=== PATIENT | female | born 1965 | race Caucasian/White ===

== ENCOUNTER 2022-06-13 14:29 | Outpatient (CLI) | payer BC, SELFPAY ==
--- OUTSIDE RECORDS SUMMARY | 2022-06-13 14:36 | XMS_ITS | Clinical Summary ---
:1965 Author Organization [facility] [place] [address] Care Team Providers Name Role Phone Pcp, No Primary Care Provider Unavailable Allergies No known active allergies Medications Medication Sig Dispensed Refills Start Date End Date Status Cholecalciferol, Take 1 tablet by 0 12/10/2015 Active Vitamin D3, (VITAMIN mouth once daily. D-3) 2,000 unit tablet lactobacillus Take 1 capsule by 0 07/18/2017 Active rhamnosus, GG, mouth 2 times (CULTURELLE) 10 billion daily. cell capsule buPROPion (WELLBUTRIN Take 1 tablet by 90 tablet 0 12/27/2017 Active SR) 150 mg mouth every Sustained-Release morning. tabletIndications: Depression, recurrent (HC) azithromycin Take 500 mg (2 6 tablet 0 03/14/2018 A ctive (ZITHROMAX) 250 mg tabs) by mouth on tabletIndications: day 1, then 250 Acute frontal mg (1 tab) daily sinusitis, recurrence for days 2-5. not specified Take with food escitalopram oxalate Take 0.5 tablets 45 tablet 1 04/30/2018 Active (LEXAPRO) 10 mg by mouth once tabletIndications: daily. 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 Tendinopathy of right biceps tendon 12/28/2020 Depression, recurrent 12/25/2017 Anxiety and depression 12/25/2017 Menorrhagia 09/08/2014 Scoliosis 04/01/2013 Immunizations Name Administration Dates Next Due Influenza, IIV3 (Age >=3 years) 09/15/2004 Influenza, IIV4 09/08/2014 Influenza, Intradermal Inactivated 09/09/2015 Tdap 03/12/2018, 05/22/2007 Family History Medical History Relation Name Comments Diabetes Brother type 2 Other Daughter ADD Asthma Father copd Diabetes Maternal Grandmother Asthma Mother Other Other bipolar, first c ousin and his child Heart Disease Paternal Aunt 55 bypass Heart Disease Paternal Grandfather 55 bypass Other Paternal Grandfather club foot Cancer Paternal Grandmother gulshan unknow n primary Cancer-colon Paternal Grandmother Cancer-breast No Family History Relation Name Status Comments Brother Daughter Father Maternal Grandmother Mother Other Paternal Aunt Paternal Grandfather Paternal Grandmother Social History Tobacco Use Types Packs/Day Years Used Date Never Smoker Smokeless Tobacco: Never Used Tobacco Cessation: Counseling Given: Yes Alcohol Use Standard Drinks/Week Comments Yes 0 (1 standard drink = 0.6 oz pure alcoho l) 1 drink 3-4 times per week Alcohol Habits Answer Date Recorded How often do you have a drink containing Not asked alcohol? How many drinks containing alcohol do you Not asked have on a typical day when you are drinking? How often do you have six or more drinks on Not asked one occasion? Comment: 1 drink 3-4 times per week 04/01/2013 Sex Assigned at Date Recorded Not on file Obstetrics History Para Term AB IAB SAB Ectopic Multiple Living Live Births 2 2 0 2 Date Outcome GA Total Labor/2nd/3rd Weight Sex Delivery Anes PTL Cary A 1 A5 Name Clin Labor Para Para Last Filed Vital Signs Vital Sign Reading Time Taken Comments Blood Pressure 114/77 03/12/2018 1:31 PM CDT tower Pulse 68 03/12/2018 1:31 PM CDT Temperature 36.4 ??C (97.6 ??F) 03/12/2018 1:31 PM CDT Respiratory Rate - - Oxygen Saturation 99% 03/12/2018 1:31 PM CDT Inhaled Oxygen Concentration - - Weight 68 kg (150 lb) 12/28/2020 1:39 PM CDT Height 162.6 cm (5' 4) 12/28/2020 1:39 PM CDT Body Mass Index 25.75 12/28/2020 1:39 PM CDT Plan of Treatment Health Maintenance Due Date Last Done Comments COVID-19 vaccine series (#1) 1965 Hepatitis C screening for age 0805/30/1984 18-79 Colonoscopy through age 75 2011 Zoster (shingles) series for age 0805/30/2016 50+ (1 of 2) Depression screening for age 12+ 12/04/2018 12/04/2017, , 11/30/2016, Additional history exists Mammogram for age 45-75 12/11/2018 12/11/2017, 09/14/2015, 09/08/2014, Additional history exists Lipids for age 45-75 09/08/2019 09/08/2014, 04/01/2013, 04/01/2013 BMI (ht and wt on same day) for 12/28/2021 12/28/2020, 03/01, age 18+ 07/18/2017, Additional history exists Influenza for age 50-64 06/01/2022 09/09/2015, 09/08/2014, 09/15/2004 Pap test for age 21-65 03/23/2023 03/23/2020, 03/23/2020, 07/13/2015, Additional history exists Tetanus booster 03/12/2028 03/12/2018, 05/22/2007 Tdap Completed 03/12/2018, 05/22/2007 Results Not on filefrom Last 3 Months Insurance Payer Benefit Plan / Subscriber ID Effective Dates Phone Addre ss Type Group [facility] [id number] [id number] [place] [address] ([place]) [facility] [place] [address] Care Teams Corporate Planning Manager Relationship Specialty Start Date End Date Pcp, No PCP - General 09/06/18 .
--- NOTE | 2022-06-13 14:40 | CRLHL7_ITS ---
For Patients: As a result of the Century Cures Act, medical imaging exams and procedure reports are released immediately into your electronic medical record. You may view this report before your referring provider. If you have questions, please contact your health care provider. BILATERAL SCREENING MAMMOGRAM WITH COMPUTER-AIDED DETECTION AND TOMOSYNTHESIS TECHNIQUE: CC and MLO views were obtained. These mammographic images have been obtained using full-field digital technique. These mammographic images were interpreted with the benefit of computer-aided detection. Breast Tomosynthesis was used in this interpretation. COMPARISON FILM: 03/17/20, 01/01/19, 12/11/17. FINDINGS: There are scattered areas of fibroglandular density IMPRESSION: There is no radiographic evidence for malignancy. ASSESSMENT: BI-RADS Category 1: Negative RECOMMENDATION: Routine screening mammogram in 1 year. A lay language report of this examination will be provided to the patient. Fernando Florence M.D. Diagnostic Radiologist [email or web address] MIKALA/Dictated by: Fernando Florence MD @ 06/14/2022 9:50:00 AM (Electronically Signed)
== END 2022-06-13 14:30 | disposition home or self-care (01) ==
LOC: MAMMO 14:30
PROVIDERS: PCP Internal Medicine; Visit Provider Internal Medicine
DX: Z12.31 Encounter for screening mammogram for malignant neoplasm of breast (principal)
CPT/HCPCS: 77063; 77067

== ENCOUNTER 2022-07-14 11:30 | Outpatient (RCR) | payer BC, SELFPAY | END 2022-07-14 14:56 | disposition home or self-care (01) | PROVIDERS: PCP Internal Medicine; Visit Provider Internal Medicine | DX: M25.649 Stiffness of unspecified hand, not elsewhere classified (principal) | CPT/HCPCS: 97033; 97035; 97110; 97140; 97165; 97535; X5282 ==

== ENCOUNTER 2022-08-02 07:12 | Day surgery (SDC) | payer BC, SELFPAY ==
--- NOTE | 2022-08-02 07:21 | SUR.PREOP ---
The eye drops brought by the patient (Ketorolac and Prednisolone) are examined and I have determined they are labeled by the patient's pharmacy for this patient as prescribed by the surgeon. The bottles are intact, recently obtained and appear to be correct.
[2022-08-02] MEDS: TETRACAINE 0.5% OPHTH 1 DROP EYE-LEFT ×2 (07:30→07:35)
[2022-08-02] MEDS: KETOROLAC OPHTH 0.5% 1 DROP EYE-LEFT ×3 (07:30→07:40)
[2022-08-02 07:37] VITALS: BMI 27.4
[2022-08-02 07:51] VITALS: BP 99/69; PULSE 64; RESP 16; TEMP 36.1; O2SAT 97
[2022-08-02] MEDS: ETHYL CHLORIDE 1 APPLICATION 1 APPLIC TOPICAL (07:54)
[2022-08-02] MEDS: SODIUM CHLORIDE 0.9 % (FLUSH) 10 ML SYRINGE IVF (07:54)
[2022-08-02] MEDS: TETRACAINE 0.5% OPHTH 2 DROP EYE-LEFT (08:38)
[2022-08-02] MEDS: BALANCED SALT IRRIG SOLN 15 ML EYE-LEFT (08:41)
--- NOTE | 2022-08-02 09:07 | W.ANESCHARGE ---
Anesthesia Charges Start Date/Time Anesthesia Start Date: 08/02/22 Anesthesia Start Time: 08:35 Stop Date/Time Anesthesia Stop Date: 08/02/22 Anesthesia Stop Time: 09:06 Summary Emergency: No
[2022-08-02 09:10] VITALS: BP 111/78; PULSE 57; RESP 16; TEMP 36.2; O2SAT 96
--- NOTE | 2022-08-02 09:40 | W.ANESCHARGE ---
Anesthesia Charges Start Date/Time Anesthesia Start Date: 08/02/22 Anesthesia Start Time: 08:35 Stop Date/Time Anesthesia Stop Date: 08/02/22 Anesthesia Stop Time: 09:06 Summary Emergency: No
--- NOTE | 2022-08-02 11:37 | W.PM.OPTPROC ---
Procedure Note Date of procedure: 08/02/22 Will [facility] bill your pro fee for this procedure?: Yes Procedure Description: SURGEON: Yas Nelson MD PREOPERATIVE DIAGNOSIS: Nuclear sclerotic cataract, left eye. POSTOPERATIVE DIAGNOSIS: Nuclear sclerotic cataract, left eye. NAME OF OPERATION: Phacoemulsification of cataract with posterior chamber intraocular lens implantation in the left eye. ANESTHESIA: Topical. ESTIMATED BLOOD LOSS: Less than 2 cc. COMPLICATIONS: None. PATHOLOGY SPECIMEN: None. INDICATIONS: See consult note for details. The risks, benefits and alternatives of the procedure were explained to the patient, who elected to proceed and signed informed consent to do so. PROCEDURE: The patient was brought to the pre-holding area where the left eye was identified as the operative eye. I placed my initials above this eye. The patient received eye drops consisting of 0.5% tetracaine, 1% tropicamide, 10% phenylephrine, and 0.5% ketorolac. The patient was then brought to the operating room where the left eye was again identified as the operative eye. The eye was prepped with Betadine and draped in the usual sterile ophthalmic fashion. A #15 super-sharp blade was used to create a paracentesis site. 1% non-preserved intracameral lidocaine was injected into the anterior chamber. Endocoat was injected into the anterior chamber. A 2.4 mm keratome was used to create a three-plane self-sealing incision 1 mm anterior to the temporal limbus. A cystotome was used to create an anterior capsular leaflet. The Utrata forceps were used to extend this to form a continuous curvilinear capsulorrhexis. Hydrodissection was performed. The cataract was removed with phacoemulsification using the plbwed-gyt-wzvocgw technique. The irrigation and aspiration tip was used to remove the remaining cortex. Healon was injected into the capsular bag. An RICHARD ZCB00 intraocular lens of 21.5 diopters was injected into the capsular bag. The irrigation and aspiration tip was used to remove the remaining viscoelastic. Balanced salt solution on a cannula was used to hydrate the wound, and the wound was found to be watertight. The pupil was noted to be round. DISPOSITION: The patient was taken to the recovery room and discharged to home in stable condition. The patient was instructed to call me or go to the emergency department with any sudden change, including dramatic loss of vision, severe pain in the eye or eyebrow region, nausea, or vomiting. The patient will follow up in the clinic tomorrow morning. Surgeon: Yas Nelson MD
== END 2022-08-02 09:38 | disposition home or self-care (01) ==
PROVIDERS: PCP Internal Medicine; Visit Provider Ophthalmology
PROC: (CPT 66984; principal; 2022-08-02 07:30)
DX: H25.12 Age-related nuclear cataract, left eye (principal)
CPT/HCPCS: 66984; 00142; A9270; J2250; J3010; V2632

== ENCOUNTER 2022-08-16 06:40 | Day surgery (SDC) | payer BC, SELFPAY ==
[2022-08-16 06:58] VITALS: BMI 27.4
[2022-08-16] MEDS: TETRACAINE 0.5% OPHTH 1 DROP EYE-RIGHT ×2 (06:58→07:05)
[2022-08-16] MEDS: KETOROLAC OPHTH 0.5% 1 DROP EYE-RIGHT ×3 (07:02→07:20)
[2022-08-16 07:11] VITALS: BP 120/76; PULSE 58; RESP 20; TEMP 36.8; O2SAT 98
[2022-08-16] MEDS: ETHYL CHLORIDE 1 APPLICATION 1 APPLIC TOPICAL (07:25)
[2022-08-16] MEDS: SODIUM CHLORIDE 0.9 % (FLUSH) 10 ML SYRINGE IVF (07:26)
[2022-08-16 07:32] LABS: SARS Antigen* negative (Negative)
[2022-08-16] MEDS: BALANCED SALT IRRIG SOLN 15 ML EYE-RIGHT (08:15)
[2022-08-16] MEDS: TETRACAINE 0.5% OPHTH 2 DROP EYE-RIGHT (08:15)
--- NOTE | 2022-08-16 08:36 | W.ANESCHARGE ---
Anesthesia Charges Start Date/Time Anesthesia Start Date: 08/16/22 Anesthesia Start Time: 08:05 Stop Date/Time Anesthesia Stop Date: 08/16/22 Anesthesia Stop Time: 08:37 Summary Emergency: No
[2022-08-16 08:37] VITALS: BP 116/74; PULSE 54; RESP 16; TEMP 36.4; O2SAT 98
--- NOTE | 2022-08-16 08:38 | P.OPTPRC_ITS ---
Procedure Note Date of procedure: 08/16/22 Will [facility] bill your pro fee for this procedure?: Yes Procedure Description: SURGEON: Yas Nelson MD PREOPERATIVE DIAGNOSIS: Nuclear sclerotic cataract, right eye. POSTOPERATIVE DIAGNOSIS: Nuclear sclerotic cataract, right eye. NAME OF OPERATION: Phacoemulsification of cataract with posterior chamber intraocular lens implantation in the right eye. ANESTHESIA: Topical. ESTIMATED BLOOD LOSS: Less than 2 cc. COMPLICATIONS: None. PATHOLOGY SPECIMEN: None. INDICATIONS: See consult note for details. The risks, benefits and alternatives of the procedure were explained to the patient, who elected to proceed and signed informed consent to do so. PROCEDURE: The patient was brought to the pre-holding area where the right eye was identified as the operative eye. I placed my initials above this eye. The patient received eye drops consisting of 0.5% tetracaine, 1% tropicamide, 10% phenylephrine, and 0.5% ketorolac. The patient was then brought to the operating room where the right eye was again identified as the operative eye. The eye was prepped with Betadine and draped in the usual sterile ophthalmic fashion. A #15 super-sharp blade was used to create a paracentesis site. 1% non-preserved intracameral lidocaine was injected into the anterior chamber. Endocoat was injected into the anterior chamber. A 2.4 mm keratome was used to create a three-plane self-sealing incision 1 mm anterior to the temporal limbus. A cystotome was used to create an anterior capsular leaflet. The Utrata forceps were used to extend this to form a continuous curvilinear capsulorrhexis. Hydrodissection was performed. The cataract was removed with phacoemulsification using the bjyuvi-fdx-wnrezcn technique. The irrigation and aspiration tip was used to remove the remaining cortex. Healon was injected into the capsular bag. An RICHARD ZCB00 intraocular lens of 21.5 diopters was injected into the capsular bag. The irrigation and aspiration tip was used to remove the remaining viscoelastic. Balanced salt solution on a cannula was used to hydrate the wound, and the wound was found to be watertight. The pupil was noted to be round. DISPOSITION: The patient was taken to the recovery room and discharged to home in stable condition. The patient was instructed to call me or go to the emergency department with any sudden change, including dramatic loss of vision, severe pain in the eye or eyebrow region, nausea, or vomiting. The patient will follow up in the clinic tomorrow morning. Surgeon: Yas Nelson MD
--- NOTE | 2022-08-16 08:48 | SUR.PHASEII ---
Dr. Nelson's Information for patients after cataract surgery packet reviewed with patient.
--- NOTE | 2022-08-16 08:54 | W.ANESCHARGE ---
Anesthesia Charges Start Date/Time Anesthesia Start Date: 08/16/22 Anesthesia Start Time: 08:05 Stop Date/Time Anesthesia Stop Date: 08/16/22 Anesthesia Stop Time: 08:37 Summary Emergency: No
== END 2022-08-16 09:05 | disposition home or self-care (01) ==
PROVIDERS: PCP Internal Medicine; Visit Provider Ophthalmology
PROC: (CPT 66984; principal; 2022-08-16 06:45)
DX: H25.11 Age-related nuclear cataract, right eye (principal)
CPT/HCPCS: 66984; 142; 87426; A9270; J2250; J3010; V2632

== ENCOUNTER 2022-08-31 09:22 | Emergency (ER) | payer BC, SELFPAY ==
--- NOTE | 2022-08-31 09:45 | CRLHL7_ITS ---
For Patients: As a result of the Cures Act, medical imaging exams and procedure reports are released immediately into your electronic medical record. You may view this report before your referring provider. If you have questions, please contact your health care provider. Indication: FALL last dylan, pain Technique: Right shoulder 3 views. Comparison: None Findings: Degenerative changes to the greater tuberosity. Mild spurring at the AC joint. No fracture or dislocation. Impression: No sign of acute injury. Dictated by Fernando Florence MD @ 08/31/2022 10:29:21 AM (Electronically Signed)
[2022-08-31 09:50] VITALS: BP 122/80; PULSE 66; RESP 16; TEMP 36.8; O2SAT 99; BMI 27.5
--- NOTE | 2022-08-31 10:58 | ED_ITS ---
HPI - Fall General Time Seen by Provider: 10:58 Date Seen: 08/31/22 Chief Complaint: Fall/Minor Trauma Stated Complaint: Fell last night, hurt R shoulder Time Seen by Provider: 08/31/22 10:28 Source: patient and RN notes reviewed Mode of arrival: ambulatory Limitations: no limitations History of Present Illness HPI Narrative: Patient is a 57-year-old female that is coming in with right shoulder pain. Slipped and fell on the ice last night. Went down on her knees and both elbows. Since then she has been having shoulder pain on the right side. She is worried as she is had 3 tears in her rotator cuff before per her report. She used to have [employer] insurance and had seen somebody in a different system, that physician is gone. She was managed non operatively, did do physical therapy. This was few years ago per her report. Her shoulder is now painful again. She does not want to use it. There is no numbness or tingling in this arm. She did not hit her head, no loss of consciousness, no neck or back pain. Nothing else hurts right now other than her shoulder, she points to anterior shoulder pain where this is bothering her. I am able to review with her that her x-ray as ordered in triage showing no acute fracture. There are no notable chronic changes on this x-ray either. Related Data Home Medications Medication Instructions Recorded Confirmed cholecalciferol (vitamin D3) 50 2,000 unit PO DAILY 04/17/22 08/31/22 mcg (2,000 unit) capsule fluocinonide 0.05 % topical 1 applic topical BID 08/01/22 08/31/22 ointment vit A-abqklxsl-twm-elderberry 1 tab PO DAILY 08/02/22 08/31/22 polyethylene glycol 3350 17 17 g PO DAILY 08/31/22 08/31/22 gram/dose oral powder (ClearLax) Previous Rx's Medication Instructions Recorded bupropion HCl 150 mg tablet,12 hr 150 mg PO BID #180 tabs 04/17/22 sustained-release escitalopram oxalate 10 mg tablet 10 mg PO QDAY #90 tabs 04/17/22 (Lexapro) Allergies Allergy/AdvReac Type Severity Reaction Status Date / Time No Known Drug Allergies Allergy Verified 08/31/22 09:53 Review of Systems Narrative: As per HPI PFSH PFSH Medical History (Updated 08/31/22 @ 11:19 by Liza Luciano MD) History of nephrolithiasis History of scoliosis Surgical History (Updated 08/17/22 @ 17:37 by Sandra Ingram MD) History of carpal tunnel surgery Social History Smoking Status: Never smoker How often do you have a drink containing alcohol: 2-3 times a week How many standard drinks containing alcohol do you have on a typical day: 1 or 2 How often do you have six or more drinks on one occasion: Never AUDIT-C Alcohol total score: 3 Non-prescribed substance use: denies use Caffeine: Yes Little interest or pleasure in doing things: several days Feeling down, depressed, or hopeless: several days Are you using contraception or practicing any form of control: No Exam Const: Vital Signs, click to edit/add: Vital Signs - 24 hr 08/31/22 09:50 Temperature 98.3 F Pulse Rate [Pulse Oximeter] 66 Respiratory Rate 16 Blood Pressure [Le ft Upper Arm] 122/80 Pulse Oximetry 99 Oxygen Delivery Me thod Room Air Patient is a 57-year-old female sitting on the edge of the ER bed, alert interactive no apparent distress. She has good radial pulses that are symmetric bilaterally. Normal sensation of her hands and her upper extremities that is symmetric and normal. She has good hand principal developer strength. No pain about her wrists or elbows. If her upper arm is isolated along her body she can flex and extend at the elbow without any difficulty. She has pain with forward flexion at the shoulder. She actually can abduct to 90? pretty easily but above 90? there is maybe some mild pain. It seems to be forward flexion that bothers her the most. I do not palpate any pain along the biceps muscle body. She does seem to have some biceps tendon tenderness within the bicipital groove. She certainly seems to have signs of impingement on examination of her rotator cuff. Documenting provider has reviewed patient's vital signs: yes Course Course Hospital Course: But patient did verbalize wanting MRI of her shoulder to nursing staff. I reviewed with her that that really is not indicated out of the ER. I certainly can get her a referral to physical therapy to start working on her shoulder again. I would recommend followup with Orthopedics given her reported history. She would like to just be seen in our system. Vital Signs Vital signs: Initial Vital Signs Temperature 98.3 F 08/31/22 09:50 Temperature Source Temporal Artery Scan 08/31/22 09:50 Pulse Rate 66 08/31/22 09:50 Respiratory Rate 16 08/31/22 09:50 Blood Pressure 122/80 08/31/22 09:50 Blood Pressure Mean 94 08/31/22 09:50 Blood Pressure Position Sitting 08/31/22 09:50 Pulse Oximetry 99 08/31/22 09:50 Oxygen Delivery Method 08/31/22 09:50 Vital Signs Temperature 98.3 F 08/31/22 09:50 Pulse Rate 66 08/31/22 09:50 Respiratory Rate 16 08/31/22 09:50 Blood Pressure 122/80 08/31/22 09:50 Pulse Oximetry 99 08/31/22 09:50 Oxygen Delivery Method 08/31/22 09:50 Temperature 98.3 F 08/31/22 09:50 Pulse Rate 66 08/31/22 09:50 Respiratory Rate 16 08/31/22 09:50 Blood Pressure 122/80 08/31/22 09:50 Pulse Oximetry 99 08/31/22 09:50 Oxygen Delivery Method 08/31/22 09:50 MDM - Fall Imaging Data X-ray right shoulder: Attestation: I have reviewed the pertinent imaging results. My impression: On my preliminary review, see no evidence of any acute fracture. Radiologist's impression: Patient: GERMAINE JIM Facility:?[facility] Patient ID:?[id number] Site Patient ID:?[id number]. Site :?1965 Study:?XRay Shoulder Right -08/31/2022 10:26:40 AM Ordering Physician:Telma De Jesus Final Report: Indication: FALL last dylan, pain Technique: Right shoulder 3 views. Comparison: None Findings: Degenerative changes to the greater tuberosity. Mild spurring at the AC joint. No fracture or dislocation. Impression: No sign of acute injury. Dictated by Fernando Florence MD @ 08/31/2022 10:29:21 AM (Electronic Signature) Critical Care Time Critical Care Time Critical Care Time: No Discharge Plan Discharge Clinical Impression: Acute pain of right shoulder, History of rotator cuff tear, Fall Patient Disposition: Home, Self-Care Condition: Stable Instructions: Shoulder Pain (ED) Additional Instructions: Physical therapy referral form provided, can use this and do recommend doing so. Use sling as needed for comfort but do pendulum exercises at least a few times a day to minimize the risk of frozen shoulder syndrome. Tylenol and ibuprofen per bottle directions as needed for discomfort. Contact Orthopedic office at [phone] to get scheduled for a follow-up. Activity Level: Activity as Tolerated Prescriptions: No Action fluocinonide 0.05 % ointment 1 applic topical BID cholecalciferol (vitamin D3) 50 mcg (2,000 unit) capsule 2,000 unit PO DAILY bupropion HCl 150 mg tablet sustained-release 12 hr 150 mg PO BID Qty: 180 3RF escitalopram oxalate [Lexapro] 10 mg tablet 10 mg PO QDAY Qty: 90 3RF vit E-qjceszpk-utc-elderberry [Emergen-C Elderberry] 1 tab PO DAILY polyethylene glycol 3350 [ClearLax] 17 gram/dose powder 17 g PO DAILY Follow Up/Referrals: Sandra Ingram MD [Primary Care Provider] - Stand Alone Forms: MyHealth Info Instructions
--- OUTSIDE RECORDS SUMMARY | 2022-08-31 11:32 | XMS_ITS | Clinical Summary ---
:1965 Author Organization [facility] [place] [address] Care Team Providers Name Role Phone Pcp, [...] Done Comments COVID-19 vaccine series (#1) 1965 HIV for age 15-65 1981 Hepatitis C screening for age 0805/30/1984 18-79 [...] Effective Dates Phone Addre ss Type Group [facility] [id number] [id number] [place] [address] (Home) [facility] [place] [phone] Care Teams Manager Program Relationship Specialty Start Date End Date Pcp, No PCP - General 09/06/18 .
== END 2022-08-31 11:36 | disposition home or self-care (01) ==
PROVIDERS: Emergency Provider Family Medicine; PCP Internal Medicine
DX: M25.511 Pain in right shoulder (principal)
CPT/HCPCS: 73030; 99283

== ENCOUNTER 2022-09-11 12:59 | Outpatient (CLI) | payer BC, SELFPAY ==
--- NOTE | 2022-09-11 13:00 | MR_ITS ---
[address] [address] Phone:?[phone] Fax:?[phone] Referring Physician Information: Aaron Chiu [address] [facility] [address] Phone:?[phone] Fax:?[phone] Patient:?Zoya Dumas D.O.B:?1965 Sex:?Female Phone:?[phone] [facility] MRN:?[id number] Exam Date:?09/11/2022 ? EXAM: MRI of the RIGHT SHOULDER, without contrast CLINICAL: Right shoulder pain. Evaluate for rotator cuff tear. COMPARISONS: MRI dated 11/17/2020. X-rays 09/02/2019. TECHNICAL: MRI sequences of the right shoulder: Axials: PD, PDFS Coronals: PD, T2FS Sagittals: PDFS, T2 SEDATION: None. CONTRAST: None. FINDINGS: Rotator cuff: Supraspinatus/Infraspinatus: There is high-grade partial/near full-thickness tearing of the distal supraspinatus tendon similar to prior exam, with partial tearing seen to extend into the infraspinatus tendon similar to prior exam. No evidence of interval increased tendon retraction. Mild fatty infiltration/atrophy of the infraspinatus muscle similar to prior exam. Teres minor: No tendinosis, tear or atrophy. Subscapularis: Tendinosis and partial interstitial tearing appears similar to prior examination. No significant fatty atrophy of the muscle belly. Bursae: Subacromial-subdeltoid: Mild bursitis. Subcoracoid: No convincing subcoracoid bursal thickening/bursitis. Coracoacromial arch: Acromion morphology: Type II. No os acromiale. Acromiohumeral space: Within normal limits. Coracohumeral space: Within normal limits. Biceps tendon, long head: Dislocated medially from the bicipital groove extending into distal subscapularis tendon fibers, similar to prior exam. No evidence of tendon rupture. Mild tendinosis of the intra-articular tendon. Glenohumeral joint: Physiologic volume of joint fluid. Articular cartilage: No significant chondral loss. Capsule: No convincing evidence of capsular thickening or injury. Labrum: Attenuation and tearing is seen to involve the superior extending into the posterior labrum similar to prior exam. No perilabral cyst identified. Bones: Mild subchondral reactive marrow edema involving the superior glenoid similar to prior exam. No osseous fracture. Acromioclavicular joint: Changes of arthrosis appear similar to prior examination. No new AC joint injury/widening. IMPRESSION: 1. High-grade partial/near full-thickness tearing of the distal supraspinatus tendon with partial tearing extending into the distal infraspinatus tendon similar to prior examination. 2. Tendinosis and partial interstitial tearing of the distal subscapularis tendon similar to prior exam. 3. Mild subacromial-subdeltoid bursitis. 4. Medial dislocation of the long head biceps tendon from the bicipital groove extending into distal subscapularis tendon fibers similar to prior exam. Mild tendinosis of the intra-articular long head biceps tendon. 5. Attenuation and tearing involving the superior extending into the posterior labrum similar to prior exam. 6. AC joint arthrosis similar to prior exam. JCZ Electronically signed on 09/11/2022 2:53:00 PM by Dawson Aleman D.O.
--- OUTSIDE RECORDS SUMMARY | 2022-09-11 13:29 | XMS_ITS | Clinical Summary ---
:1965 Author Organization [facility] [place] [address] Care Team Providers Name Role Phone Pcp, [...] Tobacco Use Types Packs/Day Years Used Date Smoking Tobacco: Never Smokeless Tobacco: Never Tobacco Cessation: Counseling Given: Yes Alcohol Use Standard Drinks/Week Comments Yes 0 (1 standard drink = 0.6 oz pure alcoho l) 1 drink 3-4 times per week Sex Assigned at Date Recorded Not on [...] Effective Dates Phone Addre ss Type Group [facility] [id number] [address] [address] [place] [address] (Roland) [address] [address] 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
== END 2022-09-11 13:00 | disposition home or self-care (01) ==
LOC: MRI 12:59
PROVIDERS: PCP Internal Medicine; Visit Provider Physician Assistant
DX: M25.511 Pain in right shoulder (principal); M75.101 Unspecified rotator cuff tear or rupture of right shoulder, not specified as traumatic; S46.911A Strain of unspecified muscle, fascia and tendon at shoulder and upper arm level, right arm, initial encounter; M75.51 Bursitis of right shoulder; Z87.39 Personal history of other diseases of the musculoskeletal system and connective tissue
CPT/HCPCS: 73221

== ENCOUNTER 2022-09-28 07:04 | Day surgery (SDC) | payer BC, SELFPAY ==
[2022-09-28] VITALS (18 sets, daily range): BP systolic 80–134; BP diastolic 54–93; PULSE 59–82; RESP 16–20; TEMP 36.4–36.5; O2SAT 91–100; BMI 27.8
[2022-09-28] MEDS: CEFAZOLIN 2 GM INJ IVP (06:56)
[2022-09-28] MEDS: LACTATED RINGERS 1000 ML 1,000 ML 100 ML IV ×2 (07:40→10:03)
[2022-09-28] MEDS: ACETAMINOPHEN 500 MG TABLET 1000 MG PO (07:45)
[2022-09-28] MEDS: OXYCODONE (CR) 10 MG TAB.ER.12H PO (07:45)
[2022-09-28] MEDS: CELECOXIB 200 MG CAPSULE PO (07:45)
--- NOTE | 2022-09-28 07:56 | SUR.PREOP ---
TIME?OUT:?0755, right shoulder PT/RN/MDA?VERIFICATION?OF?SURGICAL?SITE,?PROCEDURE,?AND?CONSENT OBTAINED?PRIOR?TO?INVASIVE?PROCEDURE.
[2022-09-28] MEDS: fentaNYL 100 MCG/2 ML inj IVP (08:00)
[2022-09-28] MEDS: MIDAZOLAM HCL 1 MG/ML inj IVP (08:00)
--- NOTE | 2022-09-28 08:13 | SUR.PREOP ---
home covid result, negative
--- NOTE | 2022-09-28 09:47 | P.NB_ITS ---
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 Images saved: Yes Medications given in 5ml increments after negative aspiration: Ropivicaine %: 0.5 mL: 20 Needle gauge: 22 Decadron (mg): 10 Precedex (mcg): 25 Patient tolerated procedure well: Yes Block Charges Block Charge (with Pro Fee): Brachial Plexus Use of Ultrasound Machine for Block: Yes- US Guidance/pain block
--- NOTE | 2022-09-28 11:04 | PM.ORPRC ---
Procedure Note Date of procedure: 09/28/22 Procedure: PREOPERATIVE DIAGNOSIS: Right shoulder rotator cuff tear, AC joint arthrosis POSTOPERATIVE DIAGNOSIS: Right shoulder rotator cuff tear, AC joint arthrosis NAME OF OPERATION: Right shoulder arthroscopic subacromial decompression, distal clavicle excision, mini open rotator cuff repair SURGEON: Lele Nelson MD CAREER TECHNICAL SUPERVISOR: Latasha Quintero PA-C ANESTHESIA: Supraclavicular block plus general endotracheal ESTIMATED BLOOD LOSS: 5 mL COMPLICATIONS: None SPECIMENS: None DRAINS: None PREOPERATIVE ANTIBIOTICS: Ancef 2 grams INDICATIONS: The patient is a 57-year-old with a history of right shoulder pain secondary to the above diagnoses. Despite appropriate non operative management, they continue to have symptoms. Operative intervention was recommended. The risks, benefits and expected outcomes were discussed in detail. These included but were not limited to: Infection, bleeding, injury to blood vessel or nerve, venous thromboembolism. All questions were answered to their satisfaction. PROCEDURE: A supraclavicular block was placed by Anesthesia. General anesthesia was administered. The patient was placed in the high beach chair position. The right shoulder was prepped and draped in the usual sterile fashion. The glenohumeral joint was infiltrated with 20 mL of normal saline with epinephrine. The posterior portal was established, the arthroscope was introduced. The anterior portal was established, Diagnostic arthroscopy was performed with findings as follows: The biceps has no significant intra-articular tendinopathy, but is subluxed medially into the subscap tear. The anterior, posterior and superior labrum are normal. Articular surfaces on the humeral head and glenoid are normal. There are no loose bodies. There is a full-thickness tear of the supraspinatus, infraspinatus and upper subscap. The arthroscope was placed in the subacromial space, the lateral portal was established. The Arthrex [place] was used to dissect the acromion free. The CA ligament was recessed off the anterior acromion, the AC joint was exposed. The acromioplasty was performed with the bur in the posterior portal. The bur was then placed in the lateral portal and the lateral and anterior aspect of the acromion were resected. The undersurface of the distal clavicle was resected through the lateral portal. Finally, the bur was placed in the anterior portal and the remainder of the distal clavicle was resected for a total of 10 mm. An accessory anterolateral portal was placed. The subacromial/subdeltoid bursa was aggressively debrided. There is a full-thickness tear of the supraspinatus, into the infraspinatus. Arthroscopic instruments were removed. The accessory anterolateral portal was extended proximally and distally, subcutaneous dissection was taken with electrocautery to the deltoid. The deltoid was divided in line with its fibers. The static retractor was placed. The subacromial/subdeltoid bursa was debrided with the Albert scissors. The small, full-thickness tear of the supraspinatus was extended with the 15 blade both anteriorly and posteriorly. This results in near full-thickness detachment of the infraspinatus and full-thickness detachment of the subscap. The greater and lesser tuberosities were debrided to punctate bleeding bone using the Lempert rongeur. An Arthrex BioComposite SwiveLock anchor was placed in most upper, lateral aspect of the lesser tuberosity, just medial to the bicipital groove. All 4 limbs of the suture were passed through the subscap using the scorpion. Two Arthrex BioComposite SwiveLock anchors were placed just off the articular surface. Both limbs of the FiberWire and fiber tape were passed using the scorpion. A fiber link was placed in the leading edge of the rotator cuff x2. We tied the 2 central FiberWire sutures over the rotator cuff. We then proceeded with a lateral row of SwiveLock anchors x 2 crossing the FiberTape and incorporating the FiberWire and fiber link into each lateral row anchor. The sutures on the eyelet in the lateral row anchors were passed through the leading edge of the supra and infraspinatus and tied. Finally, the sutures in the subscap were tied over the anterior aspect of the subscap, completing the rotator cuff repair. This provides an anatomic, watertight repair of the rotator cuff. There is no tension on the repair with the shoulder at 0? abduction. The wound was irrigated with normal saline off the pump. The deltoid was repaired with an 0 Vicryl in an interrupted [id number]-[id number]-[id number] fashion. Subcutaneous tissues were closed with a 3-0 Vicryl. Skin was closed with a 3-0 Monocryl in a subcuticular fashion. A dry dressing, polar care and sling were applied. Sponge and needle counts were correct x2. The patient tolerated the procedure well. There were no apparent complications. They were carefully transferred to the hospital bed and taken to the postanesthesia care unit in satisfactory condition. PLAN: The patient will be discharged to home. No active range of motion of the shoulder will be allowed for 6 weeks postoperatively. They can work on active range of motion of the elbow, wrist and fingers. They will follow up in the office next week for a wound check and an AP and transscapular Y-view of the shoulder prior to being seen.
--- NOTE | 2022-09-28 11:27 | W.ANESCHARGE ---
Anesthesia Charges Start Date/Time Anesthesia Start Date: 09/28/22 Anesthesia Start Time: 09:19 Stop Date/Time Anesthesia Stop Date: 09/28/22 Anesthesia Stop Time: 11:38 Summary Emergency: No
--- NOTE | 2022-09-28 11:38 | W.ANESCHARGE ---
Anesthesia Charges Start Date/Time Anesthesia Start Date: 09/28/22 Anesthesia Start Time: 09:19 Stop Date/Time Anesthesia Stop Date: 09/28/22 Anesthesia Stop Time: 11:38 Summary Emergency: No
== END 2022-09-28 14:00 | disposition home or self-care (01) ==
PROVIDERS: PCP Internal Medicine; Visit Provider Orthopaedic Surgery
PROC: (CPT 23412; principal; 2022-09-28 08:00)
DX: M19.011 Primary osteoarthritis, right shoulder (principal); M75.101 Unspecified rotator cuff tear or rupture of right shoulder, not specified as traumatic; M25.511 Pain in right shoulder
CPT/HCPCS: 29826; 29824; 23412; 01630; 64415; 76942; A9270; C1713; J0690; J1100; J2250; J2405; J2704; J2710; J2795; J3010; J7120; L3670

== ENCOUNTER 2023-04-05 09:15 | Outpatient (RCR) | payer BC, SELFPAY ==
--- NOTE | 2022-12-19 16:53 | PT.OPDNX ---
PT [facility] Daily Note PT [facility] Daily Note Start: 10/10/22 11:09 Freq: Status: Active Protocol: Document 12/19/22 13:32 [facility] (Rec: 12/19/22 13:55 [facility] [id number]) E-signed By Mohsen Patel, PT PT OP Daily Progress Note Visit Information Note Type Daily Note,Recert/Progress Note Visit Number [id number] Insurance Authorized Visits up to 20 on POC Insurance Information Insurance Name [employer] Insurance Information/Comments RTD 12/20/22 Medical Diagnosis DOS: 09/28/22 s/p Right RTC repair SAD, DCE RTD 12/20/22 Treating Diagnosis Right shoulder pain Shoulder stiffness Muscle weakness Referring MD Franny Zimmer PA-C/ Dr. Lele Nelson Subjective Subjective Pt continues to have fairly constant low level aching Pain Comments Average (fairly constant) 4/10 At worst: 6-7/10 Preferred Name Zoya Precautions Treatment Precautions/Contraindications No restrictions, Gradual progression of RTC strengthening and stabilization, as tolerated Home Exercise Home Exercise Comments Access Code: [email or web address] URL: [email or web address] Date: 11/21/2022 Prepared by: Mohsen Patel Exercises Supine Bridge - 1 x daily - 7 x weekly - 2 sets - 10 reps Supine March - 1 x daily - 7 x weekly - 2 sets - 10 reps Supine Active Straight Leg Raise - 1 x daily - 7 x weekly - 2 sets - 10 reps Flexion-Extension Shoulder Pendulum with Table Support - 3 x daily - 7 x weekly - 1 sets - 10 reps Seated Scapular Retraction - 1 x daily - 7 x weekly - 1 sets - 5 reps - 5 seconds hold Standing Shoulder and Trunk Flexion at Table - 1 x daily - 7 x weekly - 1-2 sets - 10-20 reps - 5 sec hold Supine Shoulder External Rotation in 45 Degrees Abduction AAROM with Dowel - 1 x daily - 7 x weekly - 2 sets - 10 reps - 5 sec hold Supine Shoulder Flexion Extension AAROM with Dowel - 1 x daily - 7 x weekly - 2 sets - 5-10 reps Standing Shoulder Abduction AAROM with Dowel - 1 x daily - 7 x weekly - 2 sets - 5-10 reps Sidelying Shoulder External Rotation - 1 x daily - 7 x weekly - 2 sets - 5-10 reps Supine Shoulder Internal Rotation Stretch - 1 x daily - 7 x weekly - 2 sets - 5-10 reps Single Arm Bent Over Shoulder Extension with Dumbbell - 1 x daily - 7 x weekly - 1 sets - 10-15 reps Single Arm Bent Over Shoulder Horizontal Abduction with Dumbbell - Palm Down - 1 x daily - 7 x weekly - 1 sets - 10-15 reps Objective Other/Pertinent Objective Unable to reach out to side with weight Performed 10x unweighted w/ increasing discomfort. 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 Includes right shoulder stretches, RTC strength and scap stabilization. HEP also includes core strengthening ex to support UE /distal limb movements. Access Code: [email or web address] URL: [email or web address] Date: 12/19/2022 Prepared by: Mohsen Patel Exercises Supine Bridge - 1 x daily - 7 x weekly - 2 sets - 10 reps Supine March - 1 x daily - 7 x weekly - 2 sets - 10 reps Supine Active Straight Leg Raise - 1 x daily - 7 x weekly - 2 sets - 10 reps Seated Scapular Retraction - 1 x daily - 7 x weekly - 1 sets - 5 reps - 5 seconds hold Supine Shoulder Flexion Extension AAROM with Dowel - 1 x daily - 7 x weekly - 2 sets - 5-10 reps Single Arm Bent Over Shoulder Extension with Dumbbell - 1 x daily - 7 x weekly - 1 sets - 10-15 reps Single Arm Bent Over Shoulder Horizontal Abduction with Dumbbell - Palm Down - 1 x daily - 7 x weekly - 1 sets - 10-15 reps Standing Shoulder Internal Rotation Stretch with Towel - 1 x daily - 7 x weekly - 1 sets - 2 reps - 30 seconds hold Seated Shoulder Abduction Towel Slide at Table Top - 1 x daily - 4 x weekly - 1 sets - 10-15 reps Standing Shoulder Flexion Wall Walk - 1 x daily - 4 x weekly - 1 sets - 5 reps - 5 seconds hold Shoulder External Rotation and Scapular Retraction with Resistance - 1 x daily - 4 x weekly - 2 sets - 10-15 reps Seated Shoulder Internal Rotation with Anchored Resistance - 1 x daily - 4 x weekly - 2 sets - 10-15 reps Standing Bilateral Low Shoulder Row with Anchored Resistance - 1 x daily - 4 x weekly - 1 sets - 20-30 reps Therapeutic Activity Therapeutic Activity Minutes (minutes) 10 Therapeutic Activities Comments 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 Patient attempted simulated movements she will need to do on the job such as reach out to the side, weighted bicep lift and overhead reach. All are still limited at this time . Treatment Minutes Timed Code Treatment Minutes 45 Total Treatment Time 45 Billing Units Therapeutic Activity Units 1 Therapeutic Exercise Units 2 Assessment/Impression Assessment/Impression Zoya is still having fairly constant low level aching at the front of her right shoulder (biceps path) 2 1.2 months s/p R RCR, DCE and SAD. She is making slow but fairly steady progress with ROM and strength. 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 I recommend continued skilled PT for progression of RCR protocol in order to return to work. Plan of Care Physical Therapy Goals In 4 weeks, patient will: 1) Restore full PROM right shoulder for progression to next phase of rehab 2) Be sleeping comfortably in bed, consistently In 8-10 weeks, patient will: 3) Reach into overhead cabinet with right hand to retrieve 2lb object, painfree 4) Resume driving, painfree 5) Don/doff shirt/jacket painfree 6) Lift & carry up to 15 lb object with both hands, pain max 10/10 Daily Plan of Care Change POC; See Comments Daily Plan of Care Comments Extend length of PT course of care for 2 months ([place] will be [place] of country for [place])
== END 2023-04-12 16:44 | disposition home or self-care (01) ==
PROVIDERS: PCP Internal Medicine; Visit Provider Orthopaedic Surgery
DX: Z98.890 Other specified postprocedural states (principal); Z51.89 Encounter for other specified aftercare
CPT/HCPCS: 97110; 97112; 97140; 97161; 97530; 97535

== ENCOUNTER 2023-07-27 14:23 | Outpatient (CLI) | payer BC, SELFPAY ==
--- NOTE | 2023-07-27 14:40 | CRLHL7_ITS ---
For Patients: As a result of the Century Cures Act, medical imaging exams and procedure reports are released immediately into your electronic medical record. You may view this report before your referring provider. If you have questions, please contact your health care provider. BILATERAL SCREENING MAMMOGRAM WITH COMPUTER-AIDED DETECTION AND TOMOSYNTHESIS TECHNIQUE: CC and MLO views were obtained. These mammographic images have been obtained using full-field digital technique. These mammographic images were interpreted with the benefit of computer-aided detection. Breast tomosynthesis was used in this interpretation. COMPARISON FILM: 06/13/22, 03/17/20, 06/03/19. FINDINGS: There are scattered areas of fibroglandular density. IMPRESSION: There is no radiographic evidence for malignancy. ASSESSMENT: BI-RADS Category 2: Benign RECOMMENDATION: Routine screening mammogram in 1 year. A lay language report of this examination will be provided to the patient. FERNANDO SUAREZ M.D. Diagnostic Radiologist [email or web address] PARKER/michele Transcribed: 07/30/2023, 3:[address]/Dictated by: Fernando Suarez MD @ 07/30/2023 9:08:00 AM (Electronically Signed)
== END 2023-07-27 14:24 | disposition home or self-care (01) ==
LOC: MAMMO 14:24
PROVIDERS: PCP Internal Medicine; Visit Provider Internal Medicine
DX: Z12.31 Encounter for screening mammogram for malignant neoplasm of breast (principal)
CPT/HCPCS: 77063; 77067

== ENCOUNTER 2023-08-29 11:39 | Outpatient (CLI) | payer BC, SELFPAY ==
[2023-08-29] MEDS: TETRACAINE 0.5% OPHTH 1 DROP EYE-RIGHT ×3 (11:47→12:40)
[2023-08-29] MEDS: BRIMONIDINE TARTRATE 0.2% OPHTH 1 DROP EYE-RIGHT ×2 (11:49→12:50)
[2023-08-29 11:56] VITALS: BP 118/76; PULSE 79; RESP 16; O2SAT 98
--- NOTE | 2023-08-29 13:20 | P.OPTPRC_ITS ---
Procedure Note Date of procedure: 08/29/23 Will [facility] bill your pro fee for this procedure?: Yes Procedure Description: SURGEON: Yas Nelson MD PREOPERATIVE DIAGNOSIS: Posterior capsular opacity, right eye POSTOPERATIVE DIAGNOSIS: Posterior capsular opacity, right eye PROCEDURE: YAG laser capsulotomy, right eye ANESTHESIA: Topical. ESTIMATED BLOOD LOSS: None PATHOLOGY SPECIMEN: None COMPLICATIONS: None INDICATIONS: See consult note for details. The risks, benefits and alternatives of the procedure were explained to the patient, who elected to proceed and signed informed consent to do so. PROCEDURE: The patient was brought to the pre-holding area where the right eye was identified as the operative eye. I placed my initials above this eye. The patient received 2 sets of 1 drop of 0.5% tetracaine and 1 drop of 1% tropicamide. They also received 1 drop of 0.2% brimonidine. They received 1 drop of 0.5% tetracaine immediately prior to bringing them back for the procedure. The patient was then brought to the procedure room where the right eye was again identified as the operative eye. A YAG Usman capsulotomy lens was placed on the eye. The laser was administered using a total number of 30 shots with an energy of 2.4 mJ per shot for a total energy of 72 mJ. The patient tolerated the procedure well. DISPOSITION: The patient was taken back to the pre-holding area and given 1 drop of 0.2% brimonidine in the right eye. They were discharged to home in stable condition. The patient was instructed to call me or go to the emergency department with any sudden change, including dramatic loss of vision, severe pain in the eye or eyebrow region, nausea, or vomiting. The patient was instructed to use the 0.2% brimonidine 1 drop 2 times a day in the right eye for 1 week. The patient will follow up in the clinic in 1-2 weeks.
== END 2023-08-29 12:52 | disposition home or self-care (01) ==
LOC: EYE PRC 11:39
PROVIDERS: PCP Internal Medicine; Visit Provider Ophthalmology
DX: H26.9 Unspecified cataract (principal)
CPT/HCPCS: 66821; A9270

== ENCOUNTER 2024-01-28 06:31 | Outpatient (CLI) | payer BC, SELFPAY ==
--- OUTSIDE RECORDS SUMMARY | 2024-01-28 06:33 | XMS_ITS | Clinical Summary ---
Author Name Unknown Organization [facility] Address [place], [place] [address] Care Team Providers Care Admissions Rn Name Role Phone Pcp, No Primary Care Provider Unavailabl e Allergies No known active allergies Medications Medication Sig Dispensed Refills Start Date End Date Status Cholecalciferol, Vitamin D3, (VITAMIN D-3) 2,000 unit tablet Take 1 tablet by mouth once daily. 0 12/10/2015 Active lactobacillus rhamnosus, GG, (CULTURELLE) 10 billion cell capsule Take 1 capsule by mouth 2 times daily. 0 07/18/2017 Active buPROPion (WELLBUTRIN SR) 150 mg Sustained-Release tabletIndications:Dep ression, recurrent (HC) Take 1 tablet by mouth every morning. 90 tablet 12/27/2017 Active azithromycin (ZITHROMAX) 250 mg tabletIndications:Acu te frontal sinusitis, recurrence not specified Take 500 mg (2 tabs) by mouth on day 1, then 250 mg (1 tab) daily for days 2-5. Take with food 6 tablet 03/14/2018 Active escitalopram oxalate (LEXAPRO) 10 mg tabletIndications:Anx iety and depression Take 0.5 tablets by mouth once daily. Ok to use 1/2 tablets 45 tablet 1 04/30/2018 Active Active Problems Problem Noted Date Diagnosed Date Tear of right rotator cuff 12/28/2020 Impingement syndrome of right shoulder Arthrosis of right acromioclavicular joint 12/28 Tendinopathy of right biceps tendon 12/28/2020 Depression, recurrent 12/25/2017 Anxiety and depression 12/25/2017 Menorrhagia 09/08/2014 Scoliosis 04/01/2013 Immunizations Name Administration Dates Next Due Influenza, IIV3 (Age >=3 years) 09/15/2004 Influenza, IIV4 09/08/2014 Influenza, Intradermal Inactivated 09/09/2015 Tdap 03/12/2018,05/22/2007 Family History Medical History Relation Name Comments Diabetes Brother type 2 Other Daughter ADD Asthma Father copd Diabetes Maternal Grandmother Asthma Mother Other Other bipolar, first cousin and his child Heart Disease Paternal Aunt 55 bypass Heart Disease Paternal Grandfather 55 byp ass Other Paternal Grandfather club fo ot Cancer Paternal Grandmother gulshan un known primary Cancer-colon Paternal Grandmother Cancer-breast No Family History Relation Name Status Comments Brother Daughter Father Maternal Grandmother Mother Other Paternal Aunt Paternal Grandfather Paternal Grandmother Social History Tobacco Use Types Packs/Day Years Used Date Smoking Tobacco: Never Smokeless Tobacco: Never Tobacco Cessation:Counseling Given: Yes Alcohol Use Standard Drinks/Week Comments Yes 0 (1 standard drink = 0.6 oz pur e alcohol) 1 drink 3-4 times per week PHQ-2 Answer Date Recorded PHQ-2 Score 0 12/03/2018 Sex and Gender Information Value Date Recorded Sex Assigned at Not on file Gender Identity Not on file Sexual Orientation Not on file Obstetrics History Para Term AB IAB SAB Ectopic Multiple Livin g Live Births 2 2 0 2 Date Outcome GA Total Labor Labor/2nd/3rd Weight Sex Delivery Anes PTL Cary A1 A5 Name Cl in Para Para Last Filed Vital Signs Vital Sign Reading Time Taken Comments Blood Pressure 114/77 03/12/2018 1:31 PM CDT tow er Pulse 68 03/12/2018 1:31 PM CDT Temperature 36.4 ??C (97.6 ??F) 03/12/2018 1:31 PM CD T Respiratory Rate - - Oxygen Saturation 99% 03/12/2018 1:31 PM CDT Inhaled Oxygen Concentration - - Weight 68 kg (150 lb) 12/28/2020 1:39 PM CDT Height 162.6 cm (5' 4) 12/28/2020 1:39 PM CDT Body Mass Index 25.75 12/28/2020 1:39 PM CDT Plan of Treatment Health Maintenance Due Date Last Done Comments HIV for age 15-65 1981 Hepatitis C screening for age 18-79 1984 Colonoscopy through age 75 2011 Zoster (shingles) series for age 50+ (1 of 2) 2016 Depression screening for age 12+ 12/04/2018 12/04/2017, 07/18/2017, 11/30/2016, Additional history exists Mammogram for age 45-75 12/11/2018 12/12/19 18, 09/14/2015, 09/08/2014, Additional history exists Lipids for age 45-75 09/08/2019 09/08/2014, 04/01/2013, 04/01/2013 BMI (ht and wt on same day) for age 18+ 12/28/2021 12/28/2020, 03/12/2018, 07/18/2017, Additional history exists Pap test for age 21-65 03/23/2023 , 03/23/2020, 07/13/2015, Additional history exists COVID-19 vaccine series (2022- season) 2023 Influenza for age 50-64 06/01/2024 09/09/20 15, 09/08/2014, 09/15/2004 Tetanus booster 03/12/2028 03/12/2018, 05/22/2007 Tdap Completed 03/12/2018, 05/22/2007 Pneumococcal series for age 6-64 Aged Out No longer eligible based on patient's age to complete this topic Procedures Procedure Name Priority Date/Time Associated Diagnosis Comments REPORTS DEVELOPER THIN PREP PAP SCREEN IMAGED Routine 03/23/2020 12:00 PM CDT XR MAMMO BILAT SCREENING Routine 12/11/2017 11:20 AM CDT Visit for screening mammogram LDL CHOLESTEROL,DIRECT Routine 09/08/2014 3:34 PM MANAGER INTELLIGENCE Screening, lipid from Last 3 Months or Most Recently Relevant to Health Maintenance Results * REPORTS DEVELOPER THIN PREP PAP SCREEN IMAGED (03/23/2020 12:00 PM CDT) Case Report Gynecologic Cytology Report ? Case: [id number] ? Authorizing Provider: ??Clarisse Kimble MD ?? Collected: ? 03/23/2020 1200 ? Ordering Location: ? [facility] ?Received: ?03/23/2020 1854 ? First Screen: ?Stephanie Looney ? Specimen: ?REPORTS DEVELOPER ThinPrep Vial Screening, Cervical/Vaginal ? 03/25/2020 3:[address] [facility] INTERPRETATION/ RESULT NEGATIVE FOR INTRAEPITHELIAL LESION OR MALIGNANCY (NIL) (none) 03/25/2020 3:[address] [facility] IMEN ADEQUACY Satisfactory for evaluation Endocervical component present 03/25/2020 3:[address] [facility] HPV REQUEST HPV and PAP 03/25/2020 3:13 PM CDT [facility] Additional Information 03/25/2020 3:13 PM CDT [facility] Comment: Interpreted at [facility] - [address], [place] [address] Automated Review Successful 03/25/2020 3:[address] [facility] Comment:Specimen processed s uccessfully by automated backup sawyer device, ThinPrep Imaging System, [employer] ANCILLARY TESTING REPORTS DEVELOPER HPV Ordered, Please see separate report 03/25/2020 3:13 PM CDT [facility] Note The pap test is a screening technique, not a diagnostic procedure. It is used primarily to screen for squamous cancers and precursor lesions. Published studies have shown that it is subject to both false negative and false positive results. The pap test should not be used as the sole means to diagnose or exclude pre-malignant and malignant lesions. 03/25/2020 3:13 PM CDT [facility] Other (Cervical/Vagina l) 03/23/2020 12:00 PM CDT 03/23/2020 6:54 PM CDT Clarisse Kimble MD PATHOLOGY/CYTOLOG Y [facility] [employer] [facility] [address] [place] [address], [place] * XR MAMMO BILAT SCREENING (12/11/2017 11:20 AM CDT) Anatomical Region Laterality Modality BREASTS, Breast Left, Breast Right Bilateral Mammography Impressions 12/11/2017 12:29 PM CDT ??There is no radiographic evidence for malignancy. ??Recommend annual mammograms. A lay language report of this examination will be provided to the patient. MAMMOGRAM ASSESSMENT: ??ACR 2 Benign Narrative 12/11/2017 12:29 PM CDT XR MAMMO BILAT SCREENING [[id number]] CLINICAL HISTORY: ??This is an asymptomatic 52 y.o. patient. INDICATION FOR EXAM: Mammogram Screening. TECHNIQUE: CC & MLO views were obtained. ??This digital study was evaluated with the assistance of Computer-Aided Detection. COMPARISON FILMS: Yes 09/14/15 [facility] 09/08/14 [facility] FINDINGS: ??Mammographically, the breast tissue has scattered fibroglandular densities. ??No suspicious masses or microcalcifications. ?? Benign appearing calcifications within both breasts and Benign appearing asymmetry within right breast. Cherrie Villegas ELECTROSLAG WELDING MACHINE OPERATOR MAMMO * LDL CHOLESTEROL,DIRECT (09/08/2014 3:34 PM MANAGER INTELLIGENCE) LDL CHOLESTEROL,DI RECT 126 mg/dL 09/08/2014 4:05 PM MANAGER INTELLIGENCE [facility] Blood specimen (specimen) BLOOD SPECIMEN / Unknown Butterfly / Unknown 09/08/2014 3:34 PM MANAGER INTELLIGENCE 09/08/2014 3:34 PM MANAGER INTELLIGENCE Narrative [facility] - 09/08/2014 4:05 PM MANAGER INTELLIGENCE ?RISK CATEGORY LDL GOAL ?(mg/dL) ? Vascular disease and/or diabetes (<100) Multiple (2+) risk factors ? (<130) 0-1 risk factor ?(<160) Cherrie Villegas NP CHEMISTRY Performing Organization Address City/State/[facility] Co de Phone Number [facility] [address] [place] [address], from Last 3 Months or Most Recently Relevant to Health Maintenance Care Teams Admissions Rn Relationship Specialty Start Date End Date Pcp, No . PCP - General 09/06/18
--- NOTE | 2024-01-28 08:05 | W.ANESCHARGE ---
Anesthesia Charges Start Date/Time Anesthesia Start Date: 01/28/24 Anesthesia Start Time: 07:36 Stop Date/Time Anesthesia Stop Date: 01/28/24 Anesthesia Stop Time: 08:02
--- NOTE | 2024-01-28 12:06 | W.ANESCHARGE ---
Anesthesia Charges Start Date/Time Anesthesia Start Date: 01/28/24 Anesthesia Start Time: 07:36 Stop Date/Time Anesthesia Stop Date: 01/28/24 Anesthesia Stop Time: 08:02
== END 2024-01-28 06:32 | disposition home or self-care (01) ==
LOC: OP CLINIC 06:32
PROVIDERS: PCP Internal Medicine; Visit Provider Surgery
DX: Z86.010 Personal history of colon polyps (principal)
CPT/HCPCS: 00811; 00812; 45378; J2704

== ENCOUNTER 2024-10-21 07:50 | Outpatient (CLI) | payer BC, SELFPAY | END 2024-10-21 07:51 | disposition home or self-care (01) | LOC: NFLDREF 10-22 00:51 | PROVIDERS: PCP Internal Medicine; Referring Provider Internal Medicine; Visit Provider Internal Medicine | DX: Z13.220 Encounter for screening for lipoid disorders (principal); Z13.1 Encounter for screening for diabetes mellitus | CPT/HCPCS: 80061; 82947 ==

== ENCOUNTER 2024-10-23 08:24 | Outpatient (CLI) | payer BC, SELFPAY ==
[2024-10-25 19:16] LABS: HPV Source Cervix; HPV, High Risk by TMA Not Detected
== END 2024-10-23 08:25 | disposition home or self-care (01) ==
PROVIDERS: PCP Internal Medicine; Visit Provider Internal Medicine
DX: Z12.4 Encounter for screening for malignant neoplasm of cervix (principal); Z11.51 Encounter for screening for human papillomavirus (HPV)
CPT/HCPCS: 87624; 87625; 88141; 88142

== ENCOUNTER 2024-11-02 16:20 | Emergency (ER) | payer BC, SELFPAY ==
--- OUTSIDE RECORDS SUMMARY | 2024-11-02 16:22 | XMS_ITS | Clinical Summary ---
Author Organization [facility] Address [place], [place] [address] Care Team Providers Care Subway Train Driver Name Role Phone Pcp, No Primary Care Provider Unavailabl e Allergies No known active allergies Medications Cholecalciferol , Vitamin D3, (VITAMIN D-3) 2,000 unit tablet Take 1 tablet by mouth once daily. 0 12/10/2015 Active lactobacillus rhamnosus, GG, (CULTURELLE) 10 billion cell capsule Take 1 capsule by mouth 2 times daily. 0 07/18/2017 Active buPROPion (WELLBUTRIN SR) 150 mg Sustained-Relea se tabletIndicatio ns:Depression, recurrent (HC) Take 1 tablet by mouth every morning. 90 tablet 12/27/2017 Active azithromycin (ZITHROMAX) 250 mg tabletIndicatio ns:Acute frontal sinusitis, recurrence not specified Take 500 mg (2 tabs) by mouth on day 1, then 250 mg (1 tab) daily for days 2-5. Take with food 6 tablet 03/14/2018 Active escitalopram oxalate (LEXAPRO) 10 mg tabletIndicatio ns:Anxiety and depression Take 0.5 tablets by mouth [...] Answer Date Recorded PHQ-2 Score 0 12/03/2018 Comments No Sex and Gender Information Value Date Recorded Sex Assigned at Not on file Legal Sex Female 8:27 AM GEAR HOBBER Gender Identity Not on file Sexual Orientation Not on file Obstetrics History Para Term AB IAB SAB Ectopic Multiple Livin g Live Births 2 2 0 2 Date Outcome GA Total Labor Labor/2nd/3rd Weight Sex Type Anes PTL Cary A1 A5 Name Clin Para Para Last Filed Vital Signs Vital Sign Reading Time Taken Comments Blood Pressure 114/77 03/12/2018 1:31 PM CDT tow er Pulse 68 03/12/2018 1:31 PM CDT Temperature 36.4 C (97.6 F) 03/12/2018 1:31 PM CDT Respiratory Rate - [...] 18-79 1984 Colonoscopy through age 75 2011 Pneumococcal series for age 50+ (1 of 1 - PCV) 2016 Zoster (shingles) series for age 50+ (1 [...] exists Pap test for age 21-65 03/23/2023 0, 03/23/2020, 07/13/2015, Additional history exists COVID-19 vaccine series (2023- season) 2024 Influenza for age 50-64 06/01/2024 09/09/20 15, 09/08/2014, 09/15/2004 Tetanus booster 03/12/2028 03/12/2018, 05/22/2007 Tdap Completed 03/12/2018, 05/22/2007 Pneumococcal series for age 6-49 Aged Out No longer eligible based on patient's age to complete this topic Procedures Procedure Name Priority Date/Time Associated Diagnosis Comments FINANCIAL PROFESSIONAL THIN PREP PAP SCREEN IMAGED Routine 03/23/2020 12:00 PM CDT XR MAMMO BILAT SCREENING Routine 12/11/2017 11:20 AM CDT Visit for screening mammogram LDL CHOLESTEROL,DIRECT Routine 09/08/2014 3:34 PM GEAR HOBBER Screening, lipid from Last 3 Months or Most Recently Relevant to Health Maintenance Results * FINANCIAL PROFESSIONAL THIN PREP PAP SCREEN IMAGED (03/23/2020 12:00 PM CDT) Case Report Gynecologic Cytology Report Case: [id number] Authorizing Provider: Clarisse Kimble MD Collected: 03/23/2020 1200 Ordering Location: [facility] Received: 03/23/2020 1853 First Screen: Stephanie Looney Specimen: FINANCIAL PROFESSIONAL ThinPrep Vial Screening, Cervical/Vaginal 03/25/2020 3:13 PM CDT [facility] INTERPRETATION/ RESULT NEGATIVE FOR INTRAEPITHELIAL LESION OR MALIGNANCY (NIL) (none) 03/25/2020 3:13 PM CDT [facility] IMEN ADEQUACY Satisfactory for evaluation Endocervical component present 03/25/2020 3:13 PM CDT [facility] HPV REQUEST HPV and PAP 03/25/2020 3:13 PM CDT [facility] Additional Information 03/25/2020 3:13 PM CDT [facility] Comment: Interpreted at [facility] - [address], [place] [address] Automated Review Successful 03/25/2020 3:13 PM CDT [facility] Comment:Specimen processed s uccessfully by automated wellness guide device, ThinPrep Imaging System, [employer] ANCILLARY TESTING FINANCIAL PROFESSIONAL HPV Ordered, Please see separate report 03/25/2020 3:13 PM CDT [facility] Note The pap test is a [...] and malignant lesions. 03/25/2020 3:13 PM CDT [facility] Other (Cervical/Vagina l) 03/23/2020 12:00 PM CDT 03/23/2020 6:54 PM CDT Clarisse Kimble MD PATHOLOGY/CYTOLOGY Final Result [facility] [address] [place] [address], [place] * XR MAMMO BILAT SCREENING (12/11/2017 11:20 AM CDT) Anatomical Region Laterality Modality BREASTS, Breast Left, Breast Right Bilateral Mammography Impressions 12/11/2017 12:29 PM CDT There is no radiographic evidence for malignancy. Recommend annual mammograms. A lay language report of this examination will be provided to the patient. MAMMOGRAM ASSESSMENT: ACR 2 Benign Narrative 12/11/2017 12:29 PM CDT XR MAMMO BILAT SCREENING [[id number]] CLINICAL HISTORY: This is an asymptomatic 52 y.o. patient. INDICATION FOR EXAM: Mammogram Screening. TECHNIQUE: CC & MLO views were obtained. This digital study was evaluated with the assistance of Computer-Aided Detection. COMPARISON FILMS: Yes 09/14/15 [facility] 09/08/14 [facility] FINDINGS: Mammographically, the breast tissue has scattered fibroglandular densities. No suspicious masses or microcalcifications. Benign appearing calcifications within both breasts and Benign appearing asymmetry within right breast. Cherrie Villegas NP MAMMO F inal Result * LDL CHOLESTEROL,DIRECT (09/08/2014 3:34 PM GEAR HOBBER) LDL CHOLESTEROL,DI RECT 126 mg/dL 09/08/2014 4:05 PM GEAR HOBBER [facility] Blood specimen (specimen) BLOOD SPECIMEN / Unknown Butterfly / Unknown 09/08/2014 3:34 PM GEAR HOBBER 09/08/2014 3:34 PM GEAR HOBBER Narrative [facility] - 09/08/2014 4:05 PM GEAR HOBBER RISK CATEGORY LDL GOAL (mg/dL) Vascular disease and/or diabetes (<100) Multiple (2+) risk factors (<130) 0-1 risk factor (<160) Cherrie Villegas NP CHEMISTRY F inal Result [facility] [address] [place] [address], [place] [phone] from Last 3 Months or Most Recently Relevant to Health Maintenance Care Teams Subway Train Driver Relationship Specialty Start Date End Date Pcp, No . PCP - General 09/06/18
[2024-11-02 16:26] VITALS: BP 138/84; PULSE 77; RESP 20; TEMP 36.6; O2SAT 97; BMI 28.8
--- NOTE | 2024-11-02 16:44 | CRLHL7_ITS ---
For Patients: As a result of the Cures Act, medical imaging exams and procedure reports are released immediately into your electronic medical record. You may view this report before your referring provider. If you have questions, please contact your health care provider. INDICATION: Cough. TECHNIQUE: Chest 2 views. COMPARISON: None. FINDINGS: Lungs: Normal lung volume. No consolidation. The tracheobronchial tree and hilar structures are unremarkable. Pleura: No pleural effusion or pneumothorax. Heart and Mediastinum: Normal heart size. The great vessels of the thorax are unremarkable. Bones: No acute displaced osseous process. IMPRESSION: No consolidation. Dictated by Fernando Bales MD @ 11/02/2024 5:25:03 PM (Electronically Signed)
--- NOTE | 2024-11-02 16:45 | ED.GENADULT ---
HPI - General Adult General Date Seen: 11/02/24 Chief complaint: Cough Stated complaint: Bronchial infection Time Seen by Provider: 11/02/24 16:23 History of Present Illness HPI narrative: Patient is a 51-year-old woman who got back from a trip to [place] on , comes to the ER on Sunday with complaints of cough, body aches, fatigue, headache since then. She is not sure whether she has had a fever, she does not think so. She has had some chills. She has had chest pain with coughing as well as shortness of breath. She is is not a smoker, no history of asthma. She is concerned about possible pneumonia. Related Data Home Medications ?Medication ?Instructions ?Recorded ?Confirmed cholecalciferol (vitamin D3) 50 2,000 unit PO DAILY 04/17/22 10/27/24 mcg (2,000 unit) capsule vit Y-emfdwznr-wbc-elderberry 1 tab PO DAILY 08/02/22 10/27/24 polyethylene glycol 3350 17 17 g PO .prn 05/29/23 10/27/24 gram/dose oral powder (ClearLax) fluocinonide 0.05 % topical 1 applic topical BID PRN 08/07/23 10/27/24 ointment zdain-bwj-vzksayrb-fpdurdwzruh-G-ufag ml PO PRN 08/07/23 10/27/24 12 gram-76 mg-35 mg/10 mL syrup Previous Rx's ?Medication ?Instructions ?Recorded bupropion HCl 150 mg tablet,12 hr 150 mg PO BID #180 tabs 10/23/24 sustained-release escitalopram oxalate 10 mg tablet 10 mg PO QDAY #90 tabs 10/23/24 (Lexapro) codeine 10 mg-guaifenesin 100 mg/5 10 ml PO Q4-6H PRN #120 mL 11/02/24 mL oral liquid (Guaifenesin AC) Allergies Allergy/AdvReac Type Severity Reaction Status Date / Time No Known Drug Allergies Allergy Verified 11/02/24 16:26 Review of Systems Status of ROS: Reports: 6 or more systems reviewed and unremarkable except as noted in History and below [facility] Medical History History of nephrolithiasis ?Z87.442 - Personal history of urinary calculi (ICD-10) History of scoliosis ?Z87.39 - Personal history of other diseases of the musculoskeletal system and connective tissue (ICD-10) Surgical History History of repair of rotator cuff ?Z98.890 - Other specified postprocedural states (ICD-10) History of cataract surgery ?Z98.49 - Cataract extraction status, unspecified eye (ICD-10) History of carpal tunnel surgery ?Z98.890 - Other specified postprocedural states (ICD-10) Social History What is your current living situation?: I presently have a place to live Problems where you live: pests, such as bugs, ants, or mice In the past 12 months, utilities in danger of being shut off: no In past 12 months, lack of transportation kept you from medical appts, meetings, work, or getting things needed for daily living: no In the past 12 mos, have been you worried that your food would run out before you had money to buy more?: never true In the past 12 mos, the food you bought just didn't last and you didn't have money to buy more?: never true Smoking Status: Never smoker Second hand tobacco smoke exposure: No How often do you have a drink containing alcohol: 4 or more times a week How many standard drinks containing alcohol do you have on a typical day: 1 or 2 How often do you have six or more drinks on one occasion: Never AUDIT-C Alcohol total score: 4 Non-prescribed substance use: denies use Caffeine: Yes How often does anyone, including family, friends and others, physically hurt you: never How often does anyone, including family, friends and others, insult or talk down to you: never How often does anyone, including family, friends and others, threaten you with harm: never How often does anyone, including family, friends and others, scream or curse at you: never Are you using contraception or practicing any form of control: No service: No Health Related Social Needs: Inadequate housing (Z59.1) Exam Narrative: Exam Narrative: Vital signs reviewed In general, alert, nontoxic Head: Normocephalic, atraumatic. Eyes: Sclera clear. Pupils equal and reactive. ENT: Mucous membranes moist. Neck: Supple without adenopathy. Heart: Regular rate and rhythm without murmur. Lungs: She has wheezes throughout all lung brooks, some coarse crackles noted primarily in the left lung. No increased work of breathing. She does cough frequently. Neurologic: Alert, conversant. Speech fluent, face symmetric. Moves all extremities equally. Skin: Warm, dry well perfused. Affect: Normal. Const: Vital Signs, click to edit/add: Vital Signs - 24 hr 11/02/24 16:26 Temperature 97.9 F Pulse Rate [Pulse Oximeter] 77 Respiratory Rate 20 Blood [facility] 138/84 Pulse Oximetry 97 Oxygen Delivery Me thod Room Air Course Course ED Course: Viral swab pending, influenza suspected based on prevalence in the community, but certainly other viral processes could be contributing. She has significant bronchospasm, will give a DuoNeb and prednisone here. Chest x-ray to look for infiltrate. Vital signs show no fevers here, normal O2 sats and respiratory rate. Chest x-ray by my review is negative. She is positive for influenza A. She has significant bronchospasm and I think would benefit from albuterol and prednisone. I do not see an indication for antibiotics at this point. Expected course for influenza and bronchitis reviewed. Return for worsening respiratory symptoms or other concerns. See primary care if not improving over the next week. She requests something for cough at night, will give her some Robitussin with codeine to try. Vital Signs Vital signs: Initial Vital Signs Temperature 97.9 F 11/02/24 16:26 Temperature Source Temporal Artery Scan 11/02/24 16:26 Pulse Rate 77 11/02/24 16:26 Pulse Rhythm Regular 11/02/24 16:26 Respiratory Rate 20 11/02/24 16:26 Blood Pressure 138/84 11/02/24 16:26 Blood Pressure Mean 102 11/02/24 16:26 Blood Pressure Position Semi-Fowlers 11/02/24 16:26 Pulse Oximetry 97 11/02/24 16:26 Oxygen Delivery Method Room Air 11/02/24 16:26 Vital Signs Temperature 97.9 F 11/02/24 16:26 Pulse Rate 77 11/02/24 16:26 Respiratory Rate 20 11/02/24 16:26 Blood Pressure 138/84 11/02/24 16:26 Pulse Oximetry 97 11/02/24 16:26 Oxygen Delivery Method Room Air 11/02/24 16:26 Temperature 97.9 F 11/02/24 16:26 Pulse Rate 77 11/02/24 16:26 Respiratory Rate 20 11/02/24 16:26 Blood Pressure 138/84 11/02/24 16:26 Pulse Oximetry 97 11/02/24 16:26 Oxygen Delivery Method Room Air 11/02/24 16:26 Medications Administered Medications: Generic Name Dose Route Start Last Admin Trade Name Freq PRN Reason Stop Dose Admin Albuterol/Ipratropium 1 neb 11/02/24 16:44 11/02/24 16:53 Iprat-Albut 0.5-2.5 Mg/3 Ml Neb IH 11/02/24 16:45 1 neb ONCE ONE Administration Prednisone 60 mg 11/02/24 16:44 11/02/24 16:53 Prednisone 20 Mg Tablet PO 11/02/24 16:45 60 mg ONCE ONE Administration Medical Decision Making Lab Data Labs: Lab Results 11/02/24 Range/Units 16:25 SARS-CoV-2 (PCR) Negative SARS-CoV-2 (Negative) Influenza Type A (PCR) POSITIVE PCR FLU A A (Negative) Influenza Type B (PCR) Negative PCR FLU B (Negative) RSV (PCR) Negative PCR RSV (Negative) Imaging Data Chest x-ray: Attestation: I have reviewed the pertinent imaging results. Radiologist's impression: Patient: GERMAINE JIM Facility: [facility] Site . Site : 1965 Study: XRay-Chest 2 view-11/02/2024 5:01:04 PM Ordering Physician: Willi Romero Final Report: INDICATION: Cough. TECHNIQUE: Chest 2 views. COMPARISON: None. FINDINGS: Lungs: Normal lung volume. No consolidation. The tracheobronchial tree and hilar structures are unremarkable. Pleura: No pleural effusion or pneumothorax. Heart and Mediastinum: Normal heart size. The great vessels of the thorax are unremarkable. Bones: No acute displaced osseous process. IMPRESSION: No consolidation. Discharge Plan Discharge Clinical Impression: Influenza A, Bronchitis Patient Disposition: Home, Self-Care Condition: Stable Instructions: Influenza (DC), Acute Bronchitis (ED) Additional Instructions: Your x-ray does not show evidence of pneumonia. You do have influenza A. You also have signs of bronchitis. Influenza is viral, it will improve on its own over time. It usually lasts about 7-10 days. Bronchitis is also cause by that virus, wheezing and shortness of breath are usually improved by albuterol and prednisone to reduce airway inflammation. If you feel that you are getting worse, have significant or worsening shortness of breath or other new symptoms, return any time to the ER. Otherwise, see primary care if not improving over the next week. Prescriptions: New codeine-guaifenesin [Guaifenesin AC] 10-100 mg/5 mL liquid 10 ml PO Q4-6H PRNQty: 120 0RF No Action fluocinonide 0.05 % ointment 1 applic topical BID PRN bfssv-bch-qhkqes-oodry-M-hssg 12 gram-76 mg- 35 mg/10 mL syrup PO PRN cholecalciferol (vitamin D3) 50 mcg (2,000 unit) capsule 2,000 unit PO DAILY escitalopram oxalate [Lexapro] 10 mg tablet 10 mg PO QDAY Qty: 90 3RF bupropion HCl 150 mg tablet sustained-release 12 hr 150 mg PO BID Qty: 180 3RF vit L-jpownxkl-kly-elderberry [Emergen-C Elderberry] 1 tab PO DAILY polyethylene glycol 3350 [ClearLax] 17 gram/dose powder 17 g PO .prn Follow Up/Referrals: Sandra Ingram MD [Primary Care Provider] - Stand Alone Forms: [employer] Info Instructions
[2024-11-02] MEDS: IPRAT-ALBUT 0.5-2.5 MG/3 ML NEB 1 NEB IH (16:53)
[2024-11-02] MEDS: predniSONE 20 MG TABLET 60 MG PO (16:53)
[2024-11-02 17:10] LABS: PCR FLU A POSITIVE PCR FLU A (Negative); PCR FLU B Negative PCR FLU B (Negative); PCR RSV Negative PCR RSV (Negative); SARS PCR* Negative SARS-CoV-2 (Negative)
--- OUTSIDE RECORDS SUMMARY | 2024-11-02 18:15 | XMS_ITS | Clinical Summary ---
Author Organization [employer] [facility] [employer] [facility] Address [place], [place] [address] Care Team Providers Care Other Wood Processing Machine Operator Name Role Phone Pcp, No Primary Care [...] on file Legal Sex Female 8:27 AM ELECTRICAL CONTROLS ENGINEER Gender Identity Not on file Sexual Orientation [...] Procedure Name Priority Date/Time Associated Diagnosis Comments AERIAL CROP DUSTER THIN PREP PAP SCREEN IMAGED Routine 03/23/2020 12:00 PM CDT XR MAMMO BILAT SCREENING Routine 12/11/2017 11:20 AM CDT Visit for screening mammogram LDL CHOLESTEROL,DIRECT Routine 09/08/2014 3:34 PM ELECTRICAL CONTROLS ENGINEER Screening, lipid from Last 3 Months or Most Recently Relevant to Health Maintenance Results * AERIAL CROP DUSTER THIN PREP PAP SCREEN IMAGED (03/23/2020 12:00 PM CDT) Case Report Gynecologic Cytology Report Case: [id number] Authorizing Provider: Clarisse Kimble MD Collected: 03/23/2020 1200 Ordering Location: [facility] Received: 03/23/2020 1855 First Screen: Stephanie Looney Specimen: AERIAL CROP DUSTER ThinPrep Vial Screening, Cervical/Vaginal 03/25/2020 3:13 PM CDT [facility] INTERPRETATION/ RESULT NEGATIVE FOR INTRAEPITHELIAL LESION OR MALIGNANCY (NIL) (none) 03/25/2020 3:13 PM CDT [facility] IMEN ADEQUACY Satisfactory for evaluation Endocervical component present 03/25/2020 3:13 PM CDT [facility] HPV REQUEST HPV and PAP 03/25/2020 3:13 PM CDT [facility] Additional Information 03/25/2020 3:13 PM CDT [facility] Comment: Interpreted at [facility] - [address], [place] [address] Automated Review Successful 03/25/2020 3:13 PM CDT [facility] Comment:Specimen processed s uccessfully by automated lead systems architect device, ThinPrep Imaging System, [employer] ANCILLARY TESTING AERIAL CROP DUSTER HPV Ordered, Please see separate report 03/25/2020 3:13 PM CDT [facility] Note The pap test [...] and malignant lesions. 03/25/2020 3:13 PM CDT [facility] Other (Cervical/Vagina l) 03/23/2020 12:00 PM CDT 03/23/2020 6:54 PM CDT Clarisse Kimble MD PATHOLOGY/CYTOLOGY Final Result [facility] [address] [place] [address], [place] * XR MAMMO BILAT SCREENING (12/11/2017 11:20 AM CDT) Anatomical Region Laterality Modality BREASTS, Breast Left, Breast Right Bilateral Mammography Impressions 12/11/2017 12:29 PM CDT There is no radiographic evidence for malignancy. Recommend annual mammograms. A lay language report of this examination will be provided to the patient. MAMMOGRAM ASSESSMENT: ACR 2 Benign Narrative 12/11/2017 12:29 PM CDT XR MAMMO BILAT SCREENING [[id number]] CLINICAL HISTORY: This is an asymptomatic 52 y.o. patient. INDICATION FOR EXAM: Mammogram Screening. TECHNIQUE: CC & MLO views were obtained. This digital study was evaluated with the assistance of Computer-Aided Detection. COMPARISON FILMS: Yes 09/14/15 [facility] 09/08/14 [facility] FINDINGS: Mammographically, the breast tissue has scattered fibroglandular densities. No suspicious masses or microcalcifications. Benign appearing calcifications within both breasts and Benign appearing asymmetry within right breast. Cherrie Villegas NP MAMMO F inal Result * LDL CHOLESTEROL,DIRECT (09/08/2014 3:34 PM ELECTRICAL CONTROLS ENGINEER) LDL CHOLESTEROL,DI RECT 126 mg/dL 09/08/2014 4:05 PM ELECTRICAL CONTROLS ENGINEER [facility] Blood specimen (specimen) BLOOD SPECIMEN / Unknown Butterfly / Unknown 09/08/2014 3:34 PM ELECTRICAL CONTROLS ENGINEER 09/08/2014 3:34 PM ELECTRICAL CONTROLS ENGINEER Narrative [facility] - 09/08/2014 4:05 PM ELECTRICAL CONTROLS ENGINEER RISK CATEGORY LDL GOAL (mg/dL) Vascular disease and/or diabetes (<100) Multiple (2+) risk factors (<130) 0-1 risk factor (<160) Cherrie Villegas NP CHEMISTRY F inal Result [facility] [address] [place] [address], [place] [phone] from Last 3 Months or Most Recently Relevant to Health Maintenance Care Teams Other Wood Processing Machine Operator Relationship Specialty Start Date End Date Pcp, No . PCP - General 09/06/18
== END 2024-11-02 18:15 | disposition home or self-care (01) ==
LOC: ED 18:13
PROVIDERS: Emergency Provider Emergency Medicine; PCP Internal Medicine
DX: J10.1 Influenza due to other identified influenza virus with other respiratory manifestations (principal); J40 Bronchitis, not specified as acute or chronic
CPT/HCPCS: 71046; 87631; 99284; J7512

== ENCOUNTER 2024-11-18 14:01 | Outpatient (CLI) | payer BC, SELFPAY | END 2024-11-18 14:02 | disposition home or self-care (01) | PROVIDERS: PCP Internal Medicine; Visit Provider Internal Medicine | DX: Z01.818 Encounter for other preprocedural examination (principal); R53.81 Other malaise; R53.83 Other fatigue | CPT/HCPCS: 80053; 82728; 84443 ==

== ENCOUNTER 2024-11-27 06:59 | Day surgery (SDC) | payer BC, SELFPAY ==
[2024-11-27] VITALS (13 sets, daily range): BP systolic 113–169; BP diastolic 73–95; PULSE 57–74; RESP 10–16; TEMP 36.4–36.7; O2SAT 94–100; BMI 29.4
--- OUTSIDE RECORDS SUMMARY | 2024-11-27 07:02 | XMS_ITS | Clinical Summary ---
Author Organization [employer] [facility] [employer] Address [address] [place] [id number] Care Team Providers Care Financial Examiner Name Role Phone Pcp, No Primary Care [...] 150 mg Sustained-Relea se tabletIndicatio ns:Depression, recurrent Take 1 tablet by mouth every morning. 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 Gender Identity Not on file Sexual Orientation [...] Procedure Name Priority Date/Time Associated Diagnosis Comments QLIKVIEW DEVELOPER THIN PREP PAP SCREEN IMAGED Routine 03/23/2020 12:00 PM CDT XR MAMMO BILAT SCREENING Routine 12/11/2017 11:20 AM CDT Visit for screening mammogram LDL CHOLESTEROL,DIRECT Routine 09/08/2014 3:34 PM SUPERVISOR SOLDERING Screening, lipid from Last 3 Months or Most Recently Relevant to Health Maintenance Results * QLIKVIEW DEVELOPER THIN PREP PAP SCREEN IMAGED (03/23/2020 12:00 PM CDT) Case Report Gynecologic Cytology Report Case: [id number] Authorizing Provider: Clarisse Kimble MD Collected: 03/23/2020 1200 Ordering Location: [facility] Received: 03/23/2020 1857 First Screen: Stephanie Looney Specimen: QLIKVIEW DEVELOPER ThinPrep Vial Screening, Cervical/Vaginal 03/25/2020 3:13 PM CDT [facility] INTERPRETATION/ RESULT NEGATIVE FOR INTRAEPITHELIAL LESION OR MALIGNANCY (NIL) (none) 03/25/2020 3:13 PM CDT [facility] IMEN ADEQUACY Satisfactory for evaluation Endocervical component present 03/25/2020 3:13 PM CDT [facility] HPV REQUEST HPV and PAP 03/25/2020 3:13 PM CDT [facility] Additional Information 03/25/2020 3:13 PM CDT [facility] Comment: Interpreted at [facility] - [address], [place] [address] Automated Review Successful 03/25/2020 3:13 PM CDT [facility] Comment:Specimen processed s uccessfully by automated pinion polisher device, ThinPrep Imaging System, [employer] ANCILLARY TESTING QLIKVIEW DEVELOPER HPV Ordered, Please see separate report 03/25/2020 3:13 PM CDT [facility] Note The pap test is a [...] and malignant lesions. 03/25/2020 3:13 PM CDT [facility] Other (Cervical/Vagina l) 03/23/2020 12:00 PM CDT 03/23/2020 6:54 PM CDT Clarisse Kimble MD PATHOLOGY/CYTOLOGY Final Result [facility] [address] [place] [address], [place] * XR MAMMO BILAT SCREENING (12/11/2017 11:20 AM CDT) Anatomical Region Laterality Modality BREASTS, Breast Left, Breast Right Bilateral Mammography Impressions 12/11/2017 12:29 PM CDT There is no radiographic evidence for malignancy. Recommend annual mammograms. A lay language report of this examination will be provided to the patient. MAMMOGRAM ASSESSMENT: ACR 2 Benign Narrative 12/11/2017 12:29 PM CDT XR MAMMO BILAT SCREENING [[id number]] CLINICAL HISTORY: This is an asymptomatic 52 y.o. patient. INDICATION FOR EXAM: Mammogram Screening. TECHNIQUE: CC & MLO views were obtained. This digital study was evaluated with the assistance of Computer-Aided Detection. COMPARISON FILMS: Yes 09/14/15 [facility] 09/08/14 [facility] FINDINGS: Mammographically, the breast tissue has scattered fibroglandular densities. No suspicious masses or microcalcifications. Benign appearing calcifications within both breasts and Benign appearing asymmetry within right breast. Cherrie Villegas NP MAMMO F inal Result * LDL CHOLESTEROL,DIRECT (09/08/2014 3:34 PM SUPERVISOR SOLDERING) LDL CHOLESTEROL,DI RECT 126 mg/dL 09/08/2014 4:05 PM SUPERVISOR SOLDERING [facility] Blood specimen (specimen) BLOOD SPECIMEN / Unknown Butterfly / Unknown 09/08/2014 3:34 PM SUPERVISOR SOLDERING 09/08/2014 3:34 PM SUPERVISOR SOLDERING Narrative [facility] - 09/08/2014 4:05 PM SUPERVISOR SOLDERING RISK CATEGORY LDL GOAL (mg/dL) Vascular disease and/or diabetes (<100) Multiple (2+) risk factors (<130) 0-1 risk factor (<160) Cherrie Villegas NP CHEMISTRY F inal Result [facility] [address] [place] [address], [place] [phone] from Last 3 Months or Most Recently Relevant to Health Maintenance Care Teams Financial Examiner Relationship Specialty Start Date End Date Pcp, No . PCP - General 09/06/18
[2024-11-27] MEDS: 0.9 % SODIUM CHLORIDE 500 ML 500 ML 100 ML IV (07:55)
[2024-11-27] MEDS: CEFAZOLIN 2 GM INJ IVP (08:24)
[2024-11-27] MEDS: BUPIVACAINE 0.5% 30 ML INJECTION (08:35)
--- NOTE | 2024-11-27 08:54 | PM.ORPRC ---
Procedure Note Date of procedure: 11/27/24 Procedure: PREOPERATIVE DIAGNOSIS: Right shoulder distal clavicle osteophyte after arthroscopic distal clavicle excision POSTOPERATIVE DIAGNOSIS: Right shoulder distal clavicle osteophyte after arthroscopic distal clavicle excision NAME OF OPERATION: Right shoulder open distal clavicle osteophyte resection SURGEON: Lele Nelson MD OPTICAL ENGINEERING MANAGER: Latasha Quintero PA-C ANESTHESIA: General endotracheal ESTIMATED BLOOD LOSS: 1 mL COMPLICATIONS: None SPECIMENS: None DRAINS: None PREOPERATIVE ANTIBIOTICS: Ancef 1 g INDICATIONS: The patient is a 59-year-old with a history of previous right shoulder arthroscopic subacromial decompression, distal clavicle excision, mini open rotator cuff repair. She did well until more recently when she noted a prominent bone spur over the top of her shoulder. This causes pain and discomfort and difficulties with certain clothes. She wished to have this resected. The risks, benefits and expected outcomes were discussed in detail. These included but were not limited to: Infection, bleeding, injury to blood vessel or nerve, venous thromboembolism. All questions were answered to their satisfaction. PROCEDURE: General anesthesia was administered. The patient was placed in the high beach chair position. The right shoulder was prepped and draped in the usual sterile fashion. The osteophyte is palpable over the superior aspect of the AC joint. A longitudinal incision was made directly over it. Subcutaneous dissection was sharply taken to the osteophyte which was subperiosteally exposed. It was resected with the Lempert rongeur. An intraoperative AP x-ray of the right shoulder show that it has been fully resected. The wound was irrigated with normal saline. It was closed with a 3-0 Vicryl deep and a 4-Monocryl in the skin. Soft tissues were infiltrated with 0.5% Marcaine without epinephrine prior to closure. A dry dressing was applied. Sponge and needle counts were correct x2. The patient tolerated the procedure well. There were no apparent complications. They were carefully transferred to the hospital bed and taken to the postanesthesia care unit in satisfactory condition. PLAN: The patient will be discharged to home. Use of the shoulder as tolerates. She will follow up in the office for wound check.
--- NOTE | 2024-11-27 09:17 | W.ANESCHARGE ---
Anesthesia Charges Start Date/Time Anesthesia Start Date: 11/27/24 Anesthesia Start Time: 08:07 Stop Date/Time Anesthesia Stop Date: 11/27/24 Anesthesia Stop Time: 09:10 Coding CPT Codes CPT Codes: ANESTH SURGERY OF SHOULDER - 09408 ([id number]) P2 - PATIENT W/MILD SYST DISEASE, QK - GYN PHYSICIAN 2-4 CNCRNT ANES PROC, QX - HAND GLUER AND SLICER SVC W/ MD MED DIRECTION
--- NOTE | 2024-11-27 09:31 | W.ANESCHARGE ---
Anesthesia Charges Start Date/Time Anesthesia Start Date: 11/27/24 Anesthesia Start Time: 08:07 Stop Date/Time Anesthesia Stop Date: 11/27/24 Anesthesia Stop Time: 09:10 Coding CPT Codes CPT Codes: ANESTH SURGERY OF SHOULDER - 48904 ([id number]) QK - SUPERVISOR AUDIT CLERKS 2-4 CNCRNT ANES PROC, QX - GLUE COOK SVC W/ MD MED DIRECTION, P2 - PATIENT W/MILD SYST DISEASE
== END 2024-11-27 11:00 | disposition home or self-care (01) ==
LOC: OR 07:00
PROVIDERS: PCP Internal Medicine; Visit Provider Orthopaedic Surgery
PROC: (CPT 23515; principal; 2024-11-27 08:15)
DX: M25.711 Osteophyte, right shoulder (principal)
CPT/HCPCS: 23140; 00450; 73020; J0330; J0665; J0690; J1100; J2371; J2405; J2704; J3010; J3490; J7030

== ENCOUNTER 2025-01-13 13:57 | Outpatient (CLI) | payer SELFPAY ==
--- NOTE | 2025-01-13 14:00 | CRLHL7_ITS ---
For Patients: As a result of the Century Cures Act, medical imaging exams and procedure reports are released immediately into your electronic medical record. You may view this report before your referring provider. If you have questions, please contact your health care provider. INDICATION: BILATERAL SCREENING MAMMOGRAM, ASYMPTOMATIC 59F COMPARISON: 07/27/23, 06/13/22, 03/17/20 TECHNIQUE: CC and MLO views were obtained. These mammographic images have been obtained using full-field digital technique. These mammographic images were interpreted with the benefit of computer aided detection and tomosynthesis. BREAST COMPOSITION: There are scattered areas of fibroglandular density. FINDINGS: No suspicious findings. ASSESSMENT: BI-RADS 2 Benign RECOMMENDATION: Annual screening mammogram. A lay language report of this examination will be provided to the patient. Dictated by: Fernando Florence MD @ 01/21/2025 11:31:32 (Electronically Signed)
== END 2025-01-13 13:58 | disposition home or self-care (01) ==
LOC: MAMMO 13:59
PROVIDERS: PCP Internal Medicine; Visit Provider Internal Medicine
DX: Z12.31 Encounter for screening mammogram for malignant neoplasm of breast (principal)
CPT/HCPCS: 77063; 77067